=== PATIENT | female | born 1985 | race Caucasian/White ===

== ENCOUNTER 2020-07-11 02:54 | Outpatient (CLI) | payer MEDICAID, SELFPAY ==
[2020-07-11 10:43] LABS: Abs Immature Grans 0.03 10^3/uL (0.0-0.06); Absolute Basophil Count 0.02 10^3/uL (0.0-0.2); Absolute Eosinophil Count 0.03 10^3/uL (0.0-0.7); Absolute Lymphocyte Count 1.66 10^3/uL (1.2-3.4); Absolute Monocyte Count 0.42 10^3/uL (0.1-0.8); Basophils % 0.2; Eosinophils % 0.3; HCT 42.7 % (36.0-46.0); HGB 14.4 g/dL (11.2-15.7); Immature Grans % 0.3; MCH 30.1 pg (27.0-33.0); MCHC 33.7 % (32.0-36.0); MCV 89.3 fL (80-95); MPV 8.9 fL (8.0-11.0); Monocytes % 4.3; Neutrophils % 77.9; Nucleated RBC 0 %; Platelet Count 298 10^3/uL (130-400); RBC 4.78 10^6/uL (3.93-5.22); RDW 11.9 % (11.7-14.6); RDW-SD 38.9 fL; WBC 9.76 10^3/uL (4.4-10.8)
[2020-07-11 11:32] LABS: ALT 15 U/L (14-59); AST 11 U/L (15-37); Albumin 3.5 g/dL (3.4-5.0); Alkaline Phosphatase 42 U/L (46-116); Anion Gap 10.6 mmol/L (3-11); BUN 4 mg/dL (7-18); Bilirubin, Total 0.2 mg/dL (0.2-1.0); CO2 23.4 mmol/L (21.0-32.0); CREATININE 0.5 mg/dL (0.55-1.02); Calcium 8.8 mg/dL (8.5-10.1); Chloride 105 mmol/L (98-107); Glucose 83 mg/dL (74-106); Potassium 3.8 mmol/L (3.5-5.1); Sodium 139 mmol/L (136-145); TSH (W/Ref FT4) 1.88 uIU/mL (0.36-3.74); Uric Acid 3.2 mg/dL (2.6-6.0)
[2020-07-12 09:05] LABS: Hepatitis B Surface Ag Negative (Negative)
[2020-07-12 09:39] LABS: HIV-1/2 Ag & Ab Screen Negative (Negative)
[2020-07-12 09:53] LABS: Hepatitis C Ab w Rflx HCV PCR Negative (Negative)
[2020-07-12 11:44] LABS: Varicella IgG Antibody Positive (See Note)
[2020-07-12 11:50] LABS: Syphilis Serology (RPR) Negative (Negative)
[2020-07-12 11:51] LABS: Rubella IgG Ab (UVM) Positive (See Note)
[2020-07-18 14:07] LABS: Result Summary NEGATIVE; Specimen WB Whole Blood
--- NOTE | 2020-11-09 09:30 | NS.NUTBLAN_ITS ---
Met with Ella in [place] with Edel Alas CNM. Ella JONATHAN 01/28/21, failed GTT. Her finger sticks logs indicate some elevated fasting levels however, post prandial levels wnl. Diet record indicates very low carb intake (<50 g CHO). Has started to follow keto diet in hopes of decreasing fasting levels. Reviewed with Ella that optimal GDM diet includes 175-200 g CHO, 60-65 g protein with 3 meals, 2 snacks daily, along with 1 mile walk most days. Ella lost over 100 lbs in last year and is very focused on her diet/exercise. I encouraged her to increase her carbohydrate intake and to consider insulin if needed to keep fasting levels < 95 mg/dl. . Reviewed pros of NPH insulin and . Provided Ella with meal plans and contact info if needs additional help. Will follow up in 1 weeks in [facility]/phone.
== END 2020-07-11 02:55 | disposition home or self-care (01) ==
LOC: LBO 02:54
PROVIDERS: Advanced Practice Midwife; Visit Provider Advanced Practice Midwife
DX: O10.911 Unspecified pre-existing hypertension complicating pregnancy, first trimester (principal)
CPT/HCPCS: 36415; 80053; 85027; 86787; 86803; 86850; 86900; 86901; 87340; 87389; 81220; 84443; 84550; 85025; 86592; 86762

== ENCOUNTER 2020-07-11 11:18 | Outpatient (REF) | payer MEDICAID, SELFPAY ==
--- NOTE | 2020-07-11 10:00 | PAPFT_PTH ---
PATIENT: Ella Cordoba LOC: [facility] U#:[id number] AGE/SX: 34/F ROOM: RE07/11/[address]: Claudia Farfan CNM : 1985 BED: DIS: 07/11/2020 SPEC #: [id number] RECD: 07/11/20 12:52 STATUS: ZAYNAB REQ #: [id number] DC: 07/11/20 10:[address]: Claudia Farfan DEPT: [facility] Cytology RECD BY: Marah Powers ENTERED: 07/11/20 12:52 SP TYPE: PAPFT OT DR: Unknown,Unknown Tissues: 1 - CX/ENDOCX FOR PAP SMEARS Procedures: PAP THIN PREP/UVM Screening HPV DNA PROBE Comments: [id number]
[2020-07-11 12:39] LABS: *AMPHETAMINES SCREEN URINE Negative (Negative); *BARBITURATES SCREEN URINE Negative (Negative); *BENZODIAZEPINES SCREEN URINE Negative (Negative); Cannabinoids THC POSITIVE (Negative); Cocaine Screen,Urine Negative (Negative); METHADONE URINE SCREEN Negative (Negative); OPIATES URINE SCREEN Negative (Negative)
[2020-07-11 12:41] LABS: Tricyclic Antidepressants Negative (Negative)
[2020-07-12 14:09] LABS: Chlamydia Result Negative (Negative); GC Result Negative (Negative)
[2020-07-14 22:09] LABS: Buprenorphine Negative ng/mL (Cutoff: 5.0); Norbuprenorphine Negative ng/mL (Cutoff: 2.5)
== END 2020-07-11 11:19 | disposition home or self-care (01) ==
LOC: LBN 11:18
PROVIDERS: Visit Provider Advanced Practice Midwife
DX: Z34.91 Encounter for supervision of normal pregnancy, unspecified, first trimester (principal); Z11.3 Encounter for screening for infections with a predominantly sexual mode of transmission; Z12.4 Encounter for screening for malignant neoplasm of cervix; Z11.51 Encounter for screening for human papillomavirus (HPV)
CPT/HCPCS: 80307; 87491; 87591; 88142; 87086; 87624

== ENCOUNTER 2020-07-17 10:16 | Outpatient (REF) | payer MEDICAID, SELFPAY ==
[2020-07-17 13:04] LABS: PROTEIN 6.5 mg/dL (0.0-11.9)
[2020-07-17 13:16] LABS: Total Volume 3000 ml
== END 2020-07-17 10:17 | disposition home or self-care (01) ==
LOC: LBN 10:16
PROVIDERS: Visit Provider Advanced Practice Midwife
DX: Z34.91 Encounter for supervision of normal pregnancy, unspecified, first trimester (principal)
CPT/HCPCS: 81050; 84155

== ENCOUNTER 2020-08-08 11:01 | Outpatient (CLI) | payer MEDICAID, SELFPAY ==
[2020-08-08 11:40] LABS: Kit/Specimen SENT
[2020-08-10 11:13] LABS: Syphilis Total Ab w/Reflex Nonreactive (Nonreactive)
== END 2020-08-08 11:02 | disposition home or self-care (01) ==
LOC: LBO 11:04
PROVIDERS: Advanced Practice Midwife; Visit Provider Advanced Practice Midwife
DX: Z34.91 Encounter for supervision of normal pregnancy, unspecified, first trimester (principal)
CPT/HCPCS: 36415; 86780

== ENCOUNTER 2020-08-15 03:28 | Outpatient (CLI) | payer MEDICAID, SELFPAY ==
[2020-08-15 16:36] LABS: Glucose,1 Hr (Glucola) 145 mg/dL (80-140)
== END 2020-08-15 03:29 | disposition home or self-care (01) ==
LOC: LBO 03:28
PROVIDERS: Visit Provider Advanced Practice Midwife
DX: Z34.92 Encounter for supervision of normal pregnancy, unspecified, second trimester (principal); Z68.31 Body mass index [BMI] 31.0-31.9, adult
CPT/HCPCS: 36415; 82950

== ENCOUNTER 2020-08-23 02:12 | Outpatient (CLI) | payer MEDICAID, SELFPAY ==
[2020-08-23 08:55] LABS: Glucose 1 Hour 176 mg/dL
[2020-08-23 11:04] LABS: Glucose 3 Hour 78 mg/dL
== END 2020-08-23 02:13 | disposition home or self-care (01) ==
LOC: LBO 02:12
PROVIDERS: Visit Provider Advanced Practice Midwife
DX: O99.810 Abnormal glucose complicating pregnancy (principal); Z3A.17 17 weeks gestation of pregnancy
CPT/HCPCS: 36415; 82951

== ENCOUNTER 2020-08-31 01:49 | Outpatient (CLI) | payer MEDICAID, SELFPAY ==
--- NOTE | 2020-08-31 06:15 | DI.US_ITS ---
EXAM: US OB 2-3 TRIMESTER CLINICAL HISTORY: 18 wk anatomy survey,Z34.90. TECHNIQUE: Transabdominal obstetrical ultrasound was performed. COMPARISON: No exams were available for comparison FINDINGS: There is a single viable intrauterine gestation with cardiac activity identified- bpm. Amniotic fluid: There is a normal amount of amniotic fluid. Placental location: The placenta is posterior grade 1,with no evidence of placenta previa. ANATOMY: A 3 vessel umbilical cord is seen. A four-chamber cardiac view was obtained. Right and left ventricular outflow tracts were imaged. There are no obvious abnormalities of the spinal column evident. There is no obvious abnormal ity of the anterior abdominal wall. stomach and urinary bladder are identified and there is no evidence of hydronephrosis. No abnormalities of the upper lip region are identified. No evidence of choroid plexus cysts i n the brain. Dating parameters place this at approximately 19 weeks and 1 day gestational age. BPD measures 19 weeks and 1 day HC measures 19 weeks and 2 days AC measures 18 weeks and 6 days FL measures 19 weeks and 0 days Estimated weight is 267 gm-0 pounds 9 ounces Fetus is at the 90th percentile on the Hadlock scale. IMPRESSION:: Single viable intrauterine gestation which is approximately 19 weeks and 1 day gestatio nal age, implying an JONATHAN of January 24, 2021. There are no obvious anomalies evident on today's study. The placenta is posterior with no evidence of placenta previa. There is a normal amount of amniotic fluid. DATA REPOSITORY:
== END 2020-08-31 02:09 ==
PROVIDERS: Visit Provider Advanced Practice Midwife
DX: Z34.92 Encounter for supervision of normal pregnancy, unspecified, second trimester (principal); Z3A.19 19 weeks gestation of pregnancy
CPT/HCPCS: 76805

== ENCOUNTER 2020-11-02 02:34 | Outpatient (CLI) | payer MEDICAID, SELFPAY ==
[2020-11-02 09:45] LABS: Glucose 1 Hour 222 mg/dL
[2020-11-02 11:34] LABS: Glucose 3 Hour 50 mg/dL
--- NOTE | 2020-11-03 14:39 | DIABASSESS_ITS ---
Date of service: 11/03/20 Time of Service: 14:39 Diabetes Note NOTE: Spoke with Ella on phone today. Pharmacy will have glucometer today by 4 pm. Shamir reports losing > 100 lbs before pregancy by following lower carb diet and exercising. Very anxious about regaining too much of weight. Has gained 33 lbs so far. Provided education on how to follow 175-200 g carbohyrate diet with emphasis on complex carbs, lean protein and healthy fats. Encouraged daily walking of 30 minutes. reviewed blood sugar goals and when to do finger sticks. Returns to [facility] 11/09/20. Will continue to follow and support. Time Spent in Nutritional Counseling and Treatment: 20 min
== END 2020-11-02 02:35 | disposition home or self-care (01) ==
PROVIDERS: Visit Provider Advanced Practice Midwife
DX: O99.810 Abnormal glucose complicating pregnancy (principal); Z3A.27 27 weeks gestation of pregnancy
CPT/HCPCS: 82951

== ENCOUNTER 2020-11-09 14:31 | Outpatient (REF) | payer MEDICAID, SELFPAY ==
[2020-11-09 12:03] LABS: *AMPHETAMINES SCREEN URINE Negative (Negative); *BARBITURATES SCREEN URINE Negative (Negative); *BENZODIAZEPINES SCREEN URINE Negative (Negative); Cannabinoids THC Positive (Negative); Cocaine Screen,Urine Negative (Negative); METHADONE URINE SCREEN Negative (Negative); OPIATES URINE SCREEN Negative (Negative)
[2020-11-09 12:04] LABS: Tricyclic Antidepressants Negative (Negative)
[2020-11-15 16:26] LABS: Buprenorphine Negative ng/mL (Cutoff: 5.0); Norbuprenorphine Negative ng/mL (Cutoff: 2.5)
== END 2020-11-09 14:32 | disposition home or self-care (01) ==
LOC: LBN 14:31
PROVIDERS: Visit Provider Advanced Practice Midwife
DX: O99.323 Drug use complicating pregnancy, third trimester (principal); R82.5 Elevated urine levels of drugs, medicaments and biological substances; Z3A.28 28 weeks gestation of pregnancy
CPT/HCPCS: 80307

== ENCOUNTER 2020-11-09 16:34 | Outpatient (CLI) | payer MEDICAID, SELFPAY | END 2020-11-09 16:35 | disposition home or self-care (01) | LOC: DS 16:35 | PROVIDERS: Visit Provider Dietitian, Registered | DX: O24.430 Gestational diabetes mellitus in the puerperium, diet controlled (principal); Z3A.28 28 weeks gestation of pregnancy; Z71.3 Dietary counseling and surveillance | CPT/HCPCS: 97802 ==

== ENCOUNTER 2020-12-25 01:35 | Outpatient (CLI) | payer MEDICAID, SELFPAY ==
--- NOTE | 2020-12-25 08:15 | DI.US_ITS ---
Exam(s) US OB NADJA WEIGHT EXAM: US OB NADJA WEIGHT CLINICAL HISTORY: hypertension,O10.919,z34.90. TECHNIQUE: Transabdominal obstetrical ultrasound was performed. COMPARISON: US US OB 2-3 TRIMESTER from 08/31/2020 FINDINGS: There is a single viable intrauterine gestation with cardiac activity identified-158 bpm The fetus is presently in cephalic position . Amniotic fluid: There is a normal amount of amniotic fluid with an NADJA of 11.3cm. Placental location: The placenta is posterior grade 2,with no evidence of placenta previa. Dating parameters place this at approximately 35 weeks and 3 days gestational age, implying JONATHAN of January 26, 2021. BPD measures 35 weeks and 2 days HC measures 34 weeks and 3 days AC measures 35 weeks and 6 days FL measures 36 weeks and 1 day Estimated weight is 2742 gm-6 pounds 1 ounce Fetus is at the 64th percentile on the Hadlock scale. IMPRESSION:: Viable 3rd trimester gestation, as described above. DATA REPOSITORY:
== END 2020-12-25 01:55 ==
PROVIDERS: Visit Provider Advanced Practice Midwife
DX: O16.3 Unspecified maternal hypertension, third trimester (principal); Z3A.35 35 weeks gestation of pregnancy
CPT/HCPCS: 76816

== ENCOUNTER 2020-12-25 13:08 | Outpatient (CLI) | payer MEDICAID, SELFPAY ==
[2020-12-25 13:30] VITALS: BP 159/80; PULSE 80; TEMP 36.8
[2020-12-25 13:31] VITALS: BP 159/80; PULSE 80
--- NOTE | 2020-12-25 14:55 | W.OBNST ---
Date of service: 12/25/20 Time of Service: 14:55 NST Evaluation Reason for NST Reasons for Nonstress Test: GDM-DIET CONTROLLED and OTHER, SEE COMMENT Reason for NST Other: Chronic HTN-PO Medication Gestational Age Gestational Age in Weeks and Days: 35 Weeks and 1Days Test and Monitor Explained Test/Monitor Explained: Test Explained, Monitor Explained and Patient Verbalized Understanding Vital Signs Blood Pressure: 159/80 Pulse: 80 Temperature: 98.2 F NST Information Date on Monitor: 12/25/20 Time on Monitor: 13:31 Date off Monitor: 12/25/20 Time off Monitor: 14:12 Total Time on Monitor: 41 NST Interventions: PO Hydration Contraction Frequency: 5-8 NST Evaluation Patient States Movement: Present FHR Baseline: 125 Variability: Moderate 6-25 bpm Accelerations: 15x15 Decelerations: None NST Results: Reactive Note NST Note Note: NST reactive, will be returning for NST's x2/wk for GDM and ChHTN. To ultrasound now, next NST on , 36 wk check next Friday, pt aware of and accepts plan for IOL @ 39 wks. MEJIA NST Reviewed and Verified by: Jennifer Donis
[2020-12-25 14:57] VITALS: BP 159/80; PULSE 80; TEMP 36.8
== END 2020-12-25 13:50 | disposition home or self-care (01) ==
LOC: BCD 13:11 → OBS 13:13
PROVIDERS: Visit Provider Advanced Practice Midwife
DX: O24.410 Gestational diabetes mellitus in pregnancy, diet controlled (principal); O10.013 Pre-existing essential hypertension complicating pregnancy, third trimester; Z3A.35 35 weeks gestation of pregnancy
CPT/HCPCS: 59025

== ENCOUNTER 2020-12-28 07:38 | Outpatient (CLI) | payer MEDICAID, SELFPAY ==
[2020-12-28 07:49] VITALS: BP 148/93; PULSE 98; TEMP 36.8
[2020-12-28 07:52] VITALS: BP 148/93; PULSE 98
[2020-12-28 08:07] VITALS: BP 146/81; PULSE 85
--- NOTE | 2020-12-28 08:22 | W.OBNST ---
Date of service: 12/28/20 Time of Service: 08:00 NST Evaluation Reason for NST Reasons for Nonstress Test: GDM-DIET CONTROLLED Gestational Age Gestational Age in Weeks and Days: 35 Weeks and 4Days Test and Monitor Explained Test/Monitor Explained: Test Explained, Monitor Explained and Patient Verbalized Understanding Vital Signs Blood Pressure: 148/93 Pulse: 98 Temperature: 98.2 F NST Information Date on Monitor: 12/28/20 Time on Monitor: 04:46 Date off Monitor: 12/28/20 Time off Monitor: 08:09 Total Time on Monitor: 203 NST Interventions: None Contraction Frequency: 2 in 21 min NST Evaluation Patient States Movement: Present FHR Baseline: 135 Variability: Moderate 6-25 bpm Accelerations: 15x15 NST Results: Reactive Note NST Note Note: Ella presented for NST due to Chronic HTN in and GDM. Feeling well. No GUTIERREZ, visual disturbance or epigastric pain. Denies signs of labor. Is taking Labetalol as directed. Will return to office on Friday and repeat NST at that time. JOSELYN NST Reviewed and Verified by: Claudia Farfan
[2020-12-28 08:25] VITALS: BP 148/93; PULSE 98; TEMP 36.8
[2020-12-28 12:08] VITALS: BP 104/74; PULSE 104
== END 2020-12-28 08:10 | disposition home or self-care (01) ==
LOC: BCD 07:41 → OBS 07:47
PROVIDERS: Visit Provider Advanced Practice Midwife
DX: O24.410 Gestational diabetes mellitus in pregnancy, diet controlled (principal); O10.013 Pre-existing essential hypertension complicating pregnancy, third trimester; Z3A.35 35 weeks gestation of pregnancy
CPT/HCPCS: 59025

== ENCOUNTER 2021-01-01 08:07 | Outpatient (CLI) | payer MEDICAID, SELFPAY ==
[2021-01-01 08:48] VITALS: BP 149/80; PULSE 69
[2021-01-01 08:50] VITALS: BP 149/80; PULSE 69; TEMP 37
--- NOTE | 2021-01-01 09:25 | W.OBNST ---
Date of service: 01/01/21 Time of Service: 09:26 NST Evaluation Reason for NST Reasons for Nonstress Test: GDM-DIET CONTROLLED Reason for NST Other: Chronic HTN Gestational Age Gestational Age in Weeks and Days: 36 Weeks and 1Days Test and Monitor Explained Test/Monitor Explained: Test Explained, Monitor Explained and Patient Verbalized Understanding Vital Signs Blood Pressure: 149/80 Pulse: 69 Temperature: 98.6 F NST Information Date on Monitor: 01/01/21 Time on Monitor: 08:00 Date off Monitor: 01/01/21 Time off Monitor: 08:50 Total Time on Monitor: 50 NST Interventions: None Contraction Frequency: occasional NST Evaluation Patient States Movement: Present FHR Baseline: 130 Variability: Moderate 6-25 bpm Accelerations: 15x15 Decelerations: None NST Results: Reactive Note NST Note Note: I reviewed BP and BG's with MD, BG's are very stable and at times even run low enough to allow patient to add some carbs back into diet. BP is slightly elevated without any symptoms of pre-eclampsia. IF BP remains elevated on 01/04/21 when she returns for next NST will need to increase Labetalol per MD. Patient is comfortable with this plan. IOL scheduled for 01/22/21 at 8 am at 39w1d. NST is reactive and reassuring today. NST Reviewed and Verified by: Claudia Farfan
[2021-01-01 09:28] VITALS: BP 149/80; PULSE 69; TEMP 37
== END 2021-01-01 09:05 | disposition home or self-care (01) ==
LOC: BCD 08:07 → OBS 08:09
PROVIDERS: Visit Provider Advanced Practice Midwife
DX: O24.410 Gestational diabetes mellitus in pregnancy, diet controlled (principal); O10.013 Pre-existing essential hypertension complicating pregnancy, third trimester; Z3A.36 36 weeks gestation of pregnancy
CPT/HCPCS: 59025

== ENCOUNTER 2021-01-01 13:22 | Outpatient (REF) | payer MEDICAID, SELFPAY ==
[2021-01-01 11:17] LABS: Bilirubin Negative (Negative); Blood Negative (Negative); Clarity Sl Cloudy (Clear); Glucose Negative (Negative); Ketones Negative (Negative); Leukocyte Esterase Large (Negative); Nitrite Negative (Negative); Specific Gravity 1.015 (1.005-1.025); Urobilinogen 0.2 EU/dL (Up TO 0.2); pH 7.5 (5-8)
[2021-01-01 11:25] LABS: Bacteria Moderate HPF (Negative); C & S Indicated? No/Sq. Contamination; Casts Negative LPF (Negative); Crystals Negative HPF (Negative); Epithelial Cells Many HPF (Negative); Mucus Negative (Negative); RBC 0-2 HPF (0-2); WBC 20-50 HPF (0-5)
[2021-01-01 11:40] LABS: *AMPHETAMINES SCREEN URINE Negative (Negative); *BARBITURATES SCREEN URINE Negative (Negative); *BENZODIAZEPINES SCREEN URINE Negative (Negative); Cannabinoids THC Positive (Negative); Cocaine Screen,Urine Negative (Negative); METHADONE URINE SCREEN Negative (Negative); OPIATES URINE SCREEN Negative (Negative)
[2021-01-01 11:42] LABS: Tricyclic Antidepressants Negative (Negative)
[2021-01-06 11:39] LABS: Buprenorphine Negative ng/mL (Cutoff: 5.0)
== END 2021-01-01 13:23 | disposition home or self-care (01) ==
LOC: LBN 13:22
PROVIDERS: Visit Provider Advanced Practice Midwife
DX: Z34.93 Encounter for supervision of normal pregnancy, unspecified, third trimester (principal); Z36.85 Encounter for antenatal screening for Streptococcus B; Z3A.36 36 weeks gestation of pregnancy
CPT/HCPCS: 80307; 81003; 81015; 87081

== ENCOUNTER 2021-01-04 06:47 | Outpatient (CLI) | payer MEDICAID, SELFPAY ==
[2021-01-04 10:28] VITALS: BP 144/78; PULSE 72; TEMP 36.8
[2021-01-04 10:44] VITALS: BP 144/78; PULSE 72
--- NOTE | 2021-01-04 11:15 | W.OBNST ---
Date of service: 01/04/21 Time of Service: 11:15 NST Evaluation Reason for NST Reasons for Nonstress Test: GESTATIONAL HYPERTENSION Gestational Age Gestational Age in Weeks and Days: 36 Weeks and 4Days Test and Monitor Explained Test/Monitor Explained: Test Explained, Monitor Explained and Patient Verbalized Understanding Vital Signs Blood Pressure: 144/78 Pulse: 72 Temperature: 98.2 F NST Information Date on Monitor: 01/04/21 Time on Monitor: 10:28 Date off Monitor: 01/04/21 Time off Monitor: 10:55 Total Time on Monitor: 27 NST Interventions: PO Hydration NST Evaluation Patient States Movement: Present FHR Baseline: 130 Variability: Moderate 6-25 bpm Accelerations: 15x15 Decelerations: None NST Results: Reactive Note NST Note Note: weight checked today and 213. Fundal height 36. US scheduled for growth in 2 weeks. NST Reviewed and Verified by: Claudia Alas
[2021-01-04 11:16] VITALS: BP 144/78; PULSE 72; TEMP 36.8
== END 2021-01-04 11:00 | disposition home or self-care (01) ==
LOC: BCD 06:52 → OBS 09:07
PROVIDERS: Visit Provider Advanced Practice Midwife
DX: O13.3 Gestational [pregnancy-induced] hypertension without significant proteinuria, third trimester (principal); Z3A.36 36 weeks gestation of pregnancy
CPT/HCPCS: 59025

== ENCOUNTER 2021-01-08 07:21 | Outpatient (CLI) | payer MEDICAID, SELFPAY ==
[2021-01-08 07:54] VITALS: BP 139/69; PULSE 88; TEMP 37.1
[2021-01-08 08:11] VITALS: BP 139/69; PULSE 88
--- NOTE | 2021-01-08 08:20 | W.OBNST ---
Date of service: 01/08/21 Time of Service: 08:20 NST Evaluation Gestational Age Gestational Age in Weeks and Days: 36 Weeks and 4Days Note NST Note NST Reviewed and Verified by: Jennifer Donis
[2021-01-09 14:23] VITALS: BP 139/69; PULSE 88; TEMP 37.1
--- NOTE | 2021-01-09 14:23 | W.OBNST ---
Date of service: 01/08/21 Time of Service: 08:30 NST Evaluation Reason for NST Reasons for Nonstress Test: GDM-DIET CONTROLLED and GESTATIONAL HYPERTENSION Gestational Age Gestational Age in Weeks and Days: 36 Weeks and 4Days Test and Monitor Explained Test/Monitor Explained: Test Explained, Monitor Explained and Patient Verbalized Understanding Vital Signs Blood Pressure: 139/69 Pulse: 88 Temperature: 98.8 F NST Information Date on Monitor: 01/08/21 Time on Monitor: 07:59 Date off Monitor: 01/08/21 Time off Monitor: 08:20 Total Time on Monitor: 21 NST Interventions: None NST Evaluation Patient States Movement: Present FHR Baseline: 130 Variability: Moderate 6-25 bpm Accelerations: 15x15 Decelerations: None NST Results: Reactive Note NST Note NST Reviewed and Verified by: Jennifer Donis
== END 2021-01-08 08:22 | disposition home or self-care (01) ==
LOC: BCD 07:24 → OBS 07:36
PROVIDERS: Visit Provider Advanced Practice Midwife
DX: O24.410 Gestational diabetes mellitus in pregnancy, diet controlled (principal); O10.013 Pre-existing essential hypertension complicating pregnancy, third trimester
CPT/HCPCS: 59025

== ENCOUNTER 2021-01-11 07:23 | Outpatient (CLI) | payer MEDICAID, SELFPAY ==
[2021-01-11 08:13] VITALS: BP 145/76; PULSE 85
[2021-01-11 08:34] VITALS: BP 145/76; PULSE 85; TEMP 36.9
--- NOTE | 2021-01-11 08:48 | W.OBNST ---
Date of service: 01/11/21 Time of Service: 08:48 NST Evaluation Reason for NST Reasons for Nonstress Test: CHRONIC HYPERTENSION Gestational Age Gestational Age in Weeks and Days: 39 Weeks and 1Days Test and Monitor Explained Test/Monitor Explained: Test Explained, Monitor Explained and Patient Verbalized Understanding Vital Signs Blood Pressure: 145/76 Pulse: 85 Temperature: 98.4 F NST Information Date on Monitor: 01/11/21 Time on Monitor: 07:58 Date off Monitor: 01/11/21 Time off Monitor: 08:24 Total Time on Monitor: 26 NST Interventions: Notify Provider Contraction Frequency: none NST Evaluation Patient States Movement: Present FHR Baseline: 135 Variability: Moderate 6-25 bpm Accelerations: 15x15 Decelerations: None NST Results: Reactive Note NST Note NST Reviewed and Verified by: Jennifer Donis
[2021-01-11 08:49] VITALS: BP 145/76; PULSE 85; TEMP 36.9
== END 2021-01-11 08:30 | disposition home or self-care (01) ==
LOC: BCD 07:24 → OBS 07:56
PROVIDERS: Visit Provider Advanced Practice Midwife
DX: O10.013 Pre-existing essential hypertension complicating pregnancy, third trimester (principal); Z3A.39 39 weeks gestation of pregnancy
CPT/HCPCS: 59025

== ENCOUNTER 2021-01-15 07:47 | Outpatient (CLI) | payer MEDICAID, SELFPAY ==
[2021-01-15 08:02] VITALS: BP 139/83; PULSE 83; TEMP 36.9
[2021-01-15 08:25] VITALS: BP 139/83; PULSE 83
--- NOTE | 2021-01-15 08:55 | PDOC.NST_ITS ---
Date of service: 01/15/21 Time of Service: 08:55 NST Evaluation Reason for NST Reasons for Nonstress Test: CHRONIC HYPERTENSION Gestational Age Gestational Age in Weeks and Days: 38 Weeks and 1Days Test and Monitor Explained Test/Monitor Explained: Test Explained, Monitor Explained and Patient Verbalized Understanding Vital Signs Blood Pressure: 139/83 Pulse: 83 Temperature: 98.4 F NST Information Time on Monitor: 08:00 Date off Monitor: 01/15/21 Time off Monitor: 08:29 NST Interventions: None Contraction Frequency: occasional NST Evaluation Patient States Movement: Present FHR Baseline: 130 Variability: Moderate 6-25 bpm Accelerations: 15x15 Decelerations: None NST Results: Reactive Note NST Note Note: BP 139/83. Pt discharged and to [facility] for appt. NST Reviewed and Verified by: Jennifer Donis
[2021-01-15 08:56] VITALS: BP 139/83; PULSE 83; TEMP 36.9
== END 2021-01-15 08:30 | disposition home or self-care (01) ==
LOC: BCD 07:49 → OBS 07:55
PROVIDERS: Visit Provider Advanced Practice Midwife
DX: O10.013 Pre-existing essential hypertension complicating pregnancy, third trimester (principal); Z3A.38 38 weeks gestation of pregnancy
CPT/HCPCS: 59025

== ENCOUNTER 2021-01-16 02:47 | Inpatient (IN) | payer MEDICAID, SELFPAY ==
[2021-01-16] VITALS (20 sets, daily range): BP systolic 136–180; BP diastolic 66–114; PULSE 66–105; RESP 16–20; TEMP 36.5–37.3; O2SAT 98
--- NOTE | 2021-01-16 02:48 | HPE_ITS ---
Date of service: 01/16/21 Time of Service: 02:48 Assessment and Plan Assessment and plan (1) Spontaneous onset of labor: Status: Acute Assessment and plan: A: 35 yo @ 38+2 wks Spontaneous active labor Chronic HTN w/Rx, GDM diet controlled GBS neg low risk for SD, elevated risk of PPH P: Admit to BC, CBC, T&S, COVID swab Anticipate delivery shortly Preparations in place for active third stage management OB-HPI Labor/Delivery History of Present Illness Reason for Visit: term labor Chief Complaint: Uterine Contractions; Suspected Rupture of Membranes , Associated Signs and Symptoms of Suspected ROM: gush of clear fluid in the car en route to [facility]. JONATHAN Calculator Estimated Delivery Date Method Current WG Current Estimate 01/28/21 LMP (Certain) 38w 2d Other Estimates 01/29/21 Ultrasound #1 38w 1d History of Present Expected Delivery Route/Plan - desires CNM delivery, collab w/MD for chronic HTN FOB/fiance - Dwight Yoan (his first child) BG Malu May Chronic HTN on medication: ACOG rec for IOL at 37-39 wks, booked for 01/22/21 GDM dx'ed at 27 wks Plans for regional anesthesia GBS negative Specific Issues/Plan 1. tobacco use 5 cig/day, and daily MJ use, for anxiety 1b. Smoking 3 cigarettes per day. Refill of nicotine patch 7 mg 09/28/20 2. Hx polysubstance abuse, opioid dependance. MAT treatment discont'ed 2015 2a. Pos marijuanan use - Repeat UDS in 3rd trimester and discuss POSC 2b. Pos UDS for marijuana, POSC done late December 3. history of pre-eclampsia, chronic HTN. Baseline labs ordered 07/11/20; all WNL 3a. Start 162 mg ASA daily @ 12 wks for increased risk of pre-eclampsia 3b. Began taking Labetalol 100 mg BID @ 18 wks 4. CF carrier screen negative, [place] drawn 08/08/20 - low prob x3, female 5. BMI >30, early ngwejgl=295 @ 16 wks; 5a. 3 hr GTT 96/176/72/7 (fasting only elevated level, per [facility] repeat 28 weeks) 5b. repeat 3 hr 26-28 wks: sched'ed for 11/02. 5b. On 11/02, 3 hr GTT: [id number], Glucose meter/supplies ordered. 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 Discuss with pt SMART team enrollment/[employer] support options, 10/26 pt declines enrollment 7. Restless legs - magnesium recommended 8. Ella and her partner decline covid vaccine 9. Heartburn - protonix prescribed daily. 10. Extensive dental work being done: 10 bad teeth needing caps & fillings 11. Gestational Diabetes - Monitoring QID. Will come in after 2nd week to evaluate bood sugars.. 12. Constipation - metamucil daily. 13. Gayathri do not plan to get the Covid vaccine during and post . Assessment: History Reviewed & Current Review of Systems All systems reviewed & are unremarkable except as noted in HPI and below Constitutional Constitutional: Reports system reviewed and no additional complaints, except as documented Cardiovascular Cardiovascular: Reports system reviewed and no additional complaints, except as documented Respiratory Respiratory: Reports system reviewed and no additional complaints, except as documented Gastrointestinal Gastrointestinal: Reports system reviewed and no additional complaints, except as documented Genitourinary Genitourinary: Reports system reviewed and no additional complaints, except as documented Musculoskeletal Musculoskeletal: Reports system reviewed and no additional complaints, except as documented Integumentary/Breasts Skin/Breast: Reports system reviewed and no additional complaints, except as documented [facility] Medical History (Updated 01/16/21 @ 05:02 by Jennifer Donis) ADHD Hospitalized after stopping adderall Chronic hypertension during will start lo dose ASA and do baseline labs at initial OB Current smoker info on smoking cessation given, nicotine patch History of drug use clean times 4 years except Marijuana and tobacco use History of narcotic addiction Marijuana use Positive urine drug screen THC only, will corrections counselor again PTSD (post-traumatic stress disorder) DX reported by Pt on 01/04/21 Family History (Updated 09/28/20 @ 10:26 by Claudia Alas CNM) Mother Cancer Colon cancer Hyperlipidemia Hypertension Maternal Grandfather Cancer Breast CA Paternal Grandmother Cancer Breast CA diagnosed after age 50 in her 70's Maternal Grandfather Diabetes Father Heart disease arrhythmia no meds Social History (Updated 06/27/20 @ 10:11 by Claudia Plummer MD) Smoking/Tobacco Use Status: Current every day Tobacco Type: cigarettes Smoking risk assessment performed?: Yes Household members: significant other Housing: other Details: moved from [place] in Jan. Fredi Godfrey 11yo Number of Children: 1 What type of physical activity do you participate in: walking Female Reproductive History Menstrual Age of Menarche: 12 Duration of menses: <3 days History History 2 3 Para 1 Hx # Term Pregnancies 1 Multiple births 0 Hx # Pregnancies 0 Ectopic pregnancies 0 AB induced 0 Hx Number of Living Children 1 AB spontaneous 1 Past Pregnancies Del. Date GA/Weeks # Outcome Route Wgt Sex Labor Lgth Anesthes ia Location Prov Complic 07/26/09 38 No Successful vaginal 6 lb 8 oz Female cervidil, responded right away, had epidural regional [place], [place] Delivery Date: 07/26/09 IOL for pre-eclampsia Jennifer Donis Allergies and Home Medications Allergies Allergy/AdvReac Type Severity Reaction Status Date / Time No Known Allergies Allergy Verified 01/15/21 08:57 Home Medications Medication Instructions Recorded Confirmed Type aspirin 81 mg tablet,delayed 162 mg PO DAILY #120 tab 07/12/20 01/15/21 Rx release vitamin with calcium 1 tab PO DAILY #90 tab 07/12/20 01/15/21 Rx no.72-iron 27 mg-folic acid 1 mg tablet nicotine 7 mg/24 hr daily 1 patch TRANSDERMAL Q24H #14 ea 09/28/20 01/15/21 Rx transdermal patch magnesium oxide 500 mg capsule 500 mg PO DAILY 10/26/20 01/15/21 History blood-glucose meter #1 ea 11/02/20 01/15/21 Rx lancets 28 gauge #100 ea 11/02/20 01/15/21 Rx labetalol 100 mg tablet 100 mg PO BID #30 tab 11/08/20 01/15/21 Rx pantoprazole 40 mg tablet,delayed 40 mg PO DAILY #90 tab 12/19/20 01/15/21 Rx release blood sugar diagnostic #100 ea 01/08/21 01/15/21 Rx Exam Physical Exam Vital signs: Pulse BP 84 163/106 H 01/16/21 02:39 01/16/21 02:39 Vital Signs Reviewed: Yes Constitutional Constitutional: moderate distress and average body habitus Detailed Labor and Delivery Exam Dilation: 6 Effacement (%): 100 station: +2 Position: LILIA Cervix position: anterior Consistency: soft Amniotic Membrane Status: Ruptured (gross rupture apparent) Rupture Method: Spontaneous Contraction Frequency(min): q2-3 Contraction Intensity: Strong Fetus A Heart Rate Baseline: 125 Monitor Accelerations: 15 X 15 Monitor Decelerations: None Variability: Moderate (6-25 BPM) Presentation: Cephalic Categories: Category I Est. Weight: 6 lb 6.294 oz Est. Weight: 2900 gms Date of Membrane Rupture: 01/16/21 Time of Membrane Rupture: 02:20 HEENT Exam HEENT Exam: Normal Neck Exam Neck Exam: Normal Chest/Brest/Axilla Exam Chest Exam: Normal Breast Exam Breast Exam: Not Done Respiratory Exam Respiratory Exam: Normal Cardiovascular Exam Cardiovascular Exam: Normal Abdominal Exam Abdominal Exam: Normal (Gravid) Rectal Exam Rectal Exam: Not Done Exam Exam: Normal Extremities Exam Extremities Exam: Normal Back/Spine/Pelvis Exam Back Exam: Normal Pelvis Adequate: Yes Skin Exam Skin Exam: Normal Neurological Exam Neurological Exam: Normal Psychiatric Exam Psychiatric Exam: Normal Results Results Group Beta Strep: Negative Blood Type: A+ Rubella Status: Immune Varicella Immunity: Immune Risk Assessment Risk for Shoulder Dystocia Historical/Initial OB: NEGATIVE FOR: Pelvic Abnormality, Pre- BMI>30, Previous Shoulder Dystocia or Previous Macrosomia Increased Risk?: No Counseling: is aware that GDM can increase risk of shoulder dystocia, EFW is WNL at 34 weeks 64% 11.3 NADJA.KH Date/Initial: 01/01/21 Delivery Plan @ 36wks: Induction scheduled at 39w1d 01/22/21. Risk for Pre-Eclampsia Daily Dose ASA Indicated: Yes Date Initiated/Initials: 07/11/20 hx Pre E last delivery and HTN currently, starting lo dose ASA. Yes, if one or more: POSTIVE FOR: Hx Pre-E/Gest HTN and Chronic HTN; NEGATIVE FOR: Multiple Gestation, Pre-gestational DM, Renal Disease, Systemic Lupus or APA Syndrome Yes, if 2 or more: NEGATIVE FOR: Nulliparity, Age>= 35 yrs, >10yr btwn pregnancies, BMI>30, ethinicty, Mother/Sister w/ Pre-E or Previous IUGR Risk for Post- Hemorrhage Initial: NEGATIVE FOR: Multiple Gestation, Previous PPH, Known Clotting Deficiency, Grand Multiparity or Anticoagulation At Risk?: Yes Interventions: HTN controlled with labetalol Counseled re: Active Management: Yes Date/Initials: 07/11/20.KH Risks Reviewed Risks Reviewed Upon Admission: Yes
[2021-01-16 03:09] LABS: Source Nasal/Nares
[2021-01-16 03:09] LABS: HCT 39.3 % (36.0-46.0); HGB 13.1 g/dL (11.2-15.7); MCH 28.7 pg (27.0-33.0); MCHC 33.3 % (32.0-36.0); MCV 86.2 fL (80-95); MPV 9.3 fL (8.0-11.0); Platelet Count 251 10^3/uL (130-400); RBC 4.56 10^6/uL (3.93-5.22); RDW-SD 40.9 fL; WBC 11.38 10^3/uL (4.4-10.8)
[2021-01-16 04:00] LABS: COVID-19 PCR Negative (Negative)
[2021-01-16] MEDS: Oxytocin/Normal Saline 30 UNITS/500 ML BAG 167 UNITS IV (04:47)
--- NOTE | 2021-01-16 05:07 | W.OBDELIVERY ---
Date of service: 01/16/21 Time of Service: 05:07 OB Labor/ Delivery Information Baby A Delivery Delivery Method: Spontaneaous Presentation: Cephalic Cephalic Position: Vertex Vertex Position: Right Occipital Anterior Breech Position: N/A Cord Description-Baby A: 3 Vessels Amniotic Fluid: Clear Estimated Blood Loss: 350 Delivery Outcome: Liveborn Infant Transferred: Remains with Mother Note: Labor progressed rapidly to full dilation with pt using nitrous oxide, labor too advanced to initiate regional anesthesia as pt had planned. Involuntarily pushing at full dilation, 2nd stage huddle completed, pt tried different positions and finally settled on standing at bedside and leaning upper body across the bed, using nitrous as needed. accomplished of a vigorous female infant over intact perineum, bulb suctioned and wrapped in blanket, pt stepped over cord while turning around and received baby in her arms, pt assisted onto bed. Cord ceased pulsating, clamped and cut by FOB, cord blood collected, Pitocin 10 units given IM. M[place] placenta intact with 3VC, IV access initiated for pitocin IV infusion . Introitus and vagina inspected and are intact without laceration, strong family bonding observed. Apgars 9/9, weight 3335 gms. Providers Nurse Event Planning Manager: Jennifer Donis Nurse: Kaylynn Harvey Nurse: Jeff Sheridan Labor/Delivery Information Number of Babies in Womb: 1 Reason Steroids Not Administered: N/A Group Beta Strep: Negative Antibiotics Administered: No Rubella Status: Immune Blood Type: A+ Varicella Immunity: Immune Maternal Complications: None Shoulder Dystocia: No Stages of Labor Onset of Labor Date: 01/15/21 Onset of Labor Time: 23:00 Complete Dilatation Date: 01/16/21 Complete Dilatation Time: 03:40 Labor - Stage 1 Duration: 24 hours and 0 minutes ROM Baby A: 01/16/21 ROM Baby A: 02:20 Delivery Date-Baby A: 01/16/21 Delivery Time-Baby A: 04:16 Labor Stage 2 Duration: 36 minutes Placenta Delivery Date-Baby A: 01/16/21 Placenta Delivery Time-Baby A: 04:40 Labor-Stage 3 Duration: 24 minutes Total Length of Labor-Baby A: 5 hours and 16 minutes Placenta Cultured: No Placenta Status: Delivered Baby A Gender: Female Gestational Status: Early Term (37-38.6 wks) weight: 7 lb 5.639 oz Weight Comment: 3335 gms Score-1 Minute Interval(Baby A) Heart Rate-1 minute: 100 BPM or Greater Respiratory Effort- 1 minute: Spontaneous/Strong Cry Muscle Tone-1 minute: Active Movement Reflex Response-1 minute: Prompt Response Color-1 minute: Bluish Hands or Feet Score-5 Minute Interval(Baby A) Heart Rate- 5 minute: 100 BPM or Greater Respiratory Effort-5 minute: Spontaneous/Strong Cry Muscle Tone-5 minute: Active Movement Reflex Response-5 minute: Prompt Response Color-5 minute: Bluish Hands or Feet
[2021-01-16] MEDS: Labetalol 100 MG TAB PO ×2 (09:17→20:01)
[2021-01-16] MEDS: Ibuprofen 600 MG TAB PO (13:29)
[2021-01-16] MEDS: Acetaminophen 325 MG TAB 650 MG PO (13:29)
[2021-01-17 07:43] LABS: HCT 37.9 % (36.0-46.0); HGB 12.4 g/dL (11.2-15.7); MCH 28.4 pg (27.0-33.0); MCHC 32.7 % (32.0-36.0); MCV 86.9 fL (80-95); MPV 9.4 fL (8.0-11.0); Platelet Count 234 10^3/uL (130-400); RBC 4.36 10^6/uL (3.93-5.22); RDW 13.2 % (11.7-14.6); RDW-SD 41.9 fL; WBC 9.85 10^3/uL (4.4-10.8)
--- NOTE | 2021-01-17 07:51 | W.PM.OBPNV1 ---
Date of service: 01/17/21 Time of Service: 07:51 Assessment and Plan Assessment and plan (1) Term delivered: Status: Acute Assessment and plan: A: PPD#1, PE nml Satisfied with experience BP on medication is back to baseline off to a good start P: Pt desires discharge today Will return in 1 week for BP check Will also schedule 2 & 6 wks appt with violin repairer Written instructions reviewed and given to pt (2) Chronic hypertension during : Status: Acute Subjective Subjective Patient comments: Pain well controlled, Tolerating diet and Bowel Movement baby status: Doing well, Nursing well, Rooming in and Strong Bonding Observed feeding status: Exclusively breast feeding Exam Physical Exam Vital signs: Temp Pulse Resp BP Pulse Ox 97.7 F 82 16 136/88 98 01/16/21 20:00 01/16/21 20:00 01/16/21 20:00 01/16/21 20:00 01/16/21 20:00 Vital Signs Reviewed: Yes Constitutional Constitutional: no acute distress HEENT Exam HEENT Exam: Normal Neck Exam Neck Exam: Normal Breast Exam Bilateral: Breast Exam: Normal and Soft Nipple Exam: Normal and Uninjured (pt reports some soreness, no bruising or redness seen) Respiratory Exam Respiratory Exam: Normal Cardiovascular Exam Cardiovascular Exam: Normal Abdominal Exam Abdomen: Other (soft, nontender) Fundal Exam Fundus: Below Umbilicus and Firm Rectal Exam Rectal Exam: Not Done Exam Perineum: Intact Extremities Exam Extremity Exam: Normal Back/Spine/Pelvis Exam Back Exam: Normal Skin Exam Skin Exam: Normal Neurological Exam Neurological Exam: Normal Psychiatric Exam Psychiatric Exam: Normal Results Hemoglobin/Hematocrit: Hgb 12.4 g/dL (11.2-15.7) 01/17/21 06:57 Hct 37.9 % (36.0-46.0) 01/17/21 06:57 Abnormal Lab Findings: Abnormal Labs 01/16/21 02:58 WBC 11.38 H
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
[2021-01-17] MEDS: Labetalol 100 MG TAB PO (08:22)
[2021-01-17] MEDS: Ibuprofen 600 MG TAB PO (08:22)
[2021-01-17 08:38] VITALS: BP 153/86; PULSE 84; RESP 18; TEMP 36.8; O2SAT 98
== END 2021-01-17 10:10 | disposition home or self-care (01) | DRG 806 ==
PROVIDERS: Admitting Provider Advanced Practice Midwife; Visit Provider Advanced Practice Midwife
DX: O24.420 Gestational diabetes mellitus in childbirth, diet controlled (principal); O10.02 Pre-existing essential hypertension complicating childbirth; Z37.0 Single live birth; O99.324 Drug use complicating childbirth; O99.334 Smoking (tobacco) complicating childbirth; F17.210 Nicotine dependence, cigarettes, uncomplicated; O99.62 Diseases of the digestive system complicating childbirth; Z3A.38 38 weeks gestation of pregnancy; K59.00 Constipation, unspecified; R12 Heartburn; G25.81 Restless legs syndrome; F12.90 Cannabis use, unspecified, uncomplicated; O99.344 Other mental disorders complicating childbirth; F43.10 Post-traumatic stress disorder, unspecified
CPT/HCPCS: 36415; 85027; 86850; 86900; 86901; 87635; J3490

== ENCOUNTER 2021-10-30 03:10 | Outpatient (CLI) | payer MEDICAID, SELFPAY ==
[2021-10-30 11:08] LABS: Kit/Specimen SENT
[2021-10-30 11:49] LABS: Abs Immature Grans 0.05 10^3/uL (0.0-0.06); Absolute Basophil Count 0.02 10^3/uL (0.0-0.2); Absolute Eosinophil Count 0.13 10^3/uL (0.0-0.7); Absolute Lymphocyte Count 2.27 10^3/uL (1.2-3.4); Absolute Monocyte Count 0.57 10^3/uL (0.1-0.8); Absolute Neutrophil Count 6.71 10^3/uL (1.2-6.7); Basophils % 0.2; Eosinophils % 1.3; HCT 40.7 % (36.0-46.0); HGB 13.9 g/dL (11.2-15.7); Immature Grans % 0.5; Lymphocytes % 23.3; MCH 29.3 pg (27.0-33.0); MCHC 34.2 % (32.0-36.0); MCV 86 fL (80-95); MPV 9.2 fL (8.0-11.0); Monocytes % 5.8; Neutrophils % 68.9; Platelet Count 268 10^3/uL (130-400); RBC 4.74 10^6/uL (3.93-5.22); RDW 11.8 % (11.7-14.6); RDW-SD 37.2 fL; WBC 9.75 10^3/uL (4.4-10.8)
[2021-10-30 11:59] LABS: *AMPHETAMINES SCREEN URINE Negative (Negative); *BARBITURATES SCREEN URINE Negative (Negative); *BENZODIAZEPINES SCREEN URINE Negative (Negative); Cannabinoids THC Positive (Negative); Cocaine Screen,Urine Negative (Negative); METHADONE URINE SCREEN Negative (Negative); OPIATES URINE SCREEN Negative (Negative)
[2021-10-30 12:00] LABS: Tricyclic Antidepressants Negative (Negative)
[2021-10-30 12:09] LABS: TSH (W/Ref FT4) 1.12 uIU/mL (0.36-3.74)
[2021-10-31 10:05] LABS: Hepatitis B Surface Ag Negative (Negative)
[2021-10-31 10:32] LABS: Hepatitis C Ab w Rflx HCV PCR Negative (Negative)
[2021-10-31 11:33] LABS: Varicella IgG Antibody Positive (See Note)
[2021-10-31 11:37] LABS: Rubella IgG Ab (UVM) Positive (See Note)
[2021-10-31 13:18] LABS: HIV-1/2 Ag & Ab Screen Negative (Negative)
[2021-11-01 08:20] LABS: Chlamydia Result Negative (Negative); GC Result Negative (Negative)
[2021-11-01 18:10] LABS: Syphilis IgG w/Reflex Nonreactive (Nonreactive)
[2021-11-07 09:48] LABS: Buprenorphine Negative ng/mL (Cutoff: 5.0); Norbuprenorphine Negative ng/mL (Cutoff: 2.5)
== END 2021-10-30 03:11 | disposition home or self-care (01) ==
LOC: LBO 03:10
PROVIDERS: Visit Provider Advanced Practice Midwife
DX: O26.891 Other specified pregnancy related conditions, first trimester (principal); N89.8 Other specified noninflammatory disorders of vagina; Z86.32 Personal history of gestational diabetes; Z3A.11 11 weeks gestation of pregnancy
CPT/HCPCS: 36415; 80307; 86787; 86803; 86850; 86900; 86901; 87340; 87389; 87491; 87591; 84443; 85025; 86762; 86780; 87086; 87480; 87510; 87660

== ENCOUNTER 2021-12-11 03:08 | Outpatient (CLI) | payer MEDICAID, SELFPAY ==
[2021-12-11 08:28] LABS: ALT 18 U/L (14-59); AST 14 U/L (15-37); Albumin 3.1 g/dL (3.4-5.0); Alkaline Phosphatase 38 U/L (46-116); Anion Gap 10.8 mmol/L (3-11); BUN 7 mg/dL (7-18); Bilirubin, Total 0.3 mg/dL (0.2-1.0); CO2 21.2 mmol/L (21.0-32.0); CREATININE 0.5 mg/dL (0.55-1.02); Calcium 8.6 mg/dL (8.5-10.1); Chloride 104 mmol/L (98-107); Glucose 90 mg/dL (74-106); LDH 131 U/L (81-234); Potassium 3.6 mmol/L (3.5-5.1); Sodium 136 mmol/L (136-145)
[2021-12-11 09:22] LABS: Glucose 1 Hour 130 mg/dL
[2021-12-11 11:35] LABS: Glucose 3 Hour 54 mg/dL
[2021-12-12 16:20] LABS: GA used in risk estimate Scan estimate; IVF Pregnancy No; Initial or repeat testing Initial testing; Insulin dependent diabetes No; Maternal Weight 218 lbs; Number of Fetuses 1; Prev Pregnancy w/NTD No; RECOMMENDED FOLLOW UP None.; Results Summary Normal risk
== END 2021-12-11 03:09 | disposition home or self-care (01) ==
LOC: LBO 03:08
PROVIDERS: Advanced Practice Midwife; Visit Provider Advanced Practice Midwife
DX: O09.292 Supervision of pregnancy with other poor reproductive or obstetric history, second trimester (principal); Z86.32 Personal history of gestational diabetes; Z3A.17 17 weeks gestation of pregnancy; Z36.89 Encounter for other specified antenatal screening
CPT/HCPCS: 36410; 80053; 82105; 82951; 83615; 84550

== ENCOUNTER 2021-12-13 19:11 | Outpatient (REF) | payer MEDICAID, SELFPAY ==
[2021-12-13 16:09] LABS: Creatinine,Urine 44.43 mg/dL; PROTEIN 6.3 mg/dL (0.0-11.9)
[2021-12-13 16:36] LABS: Creatinine,24hr Ur 1.56 g/24hr (0.60-1.80); TOTAL PROTEIN,URINE TIMED 223.7 mg/24hr (0.0-149.1); Total Volume 3550 ml
== END 2021-12-13 19:12 | disposition home or self-care (01) ==
LOC: LBN 19:11
PROVIDERS: Visit Provider Advanced Practice Midwife
DX: O09.292 Supervision of pregnancy with other poor reproductive or obstetric history, second trimester (principal); Z86.32 Personal history of gestational diabetes; Z3A.17 17 weeks gestation of pregnancy
CPT/HCPCS: 81050; 82570; 84155

== ENCOUNTER → 2022-01-03 02:18 | Outpatient (CLI) | payer MEDICAID, SELFPAY ==
--- NOTE | 2022-01-03 08:00 | DI.US_ITS ---
Exam(s) US OB 2-3 TRIMESTER EXAM: US OB 2-3 TRIMESTER CLINICAL HISTORY: anatomy survey, Z34.92, . TECHNIQUE: Transabdominal obstetrical ultrasound performed. COMPARISON: US US OB NADJA WEIGHT from 12/25/2020 FINDINGS: Transabdominal obstetrical ultrasound performed. FINDINGS: Number of fetuses: One. position: Vertex. heart rate: 167 bpm. Placental location: There is a grade 1 anterior placenta. The placenta covers the internal os consis tent with a previa. Amniotic fluid index: Amount of fluid is within normal limits. ANATOMICAL SURVEY: Within normal limits. BIOMETRIC DATA: BPD: 52 mm = 21 weeks 6 days HC: 188 mm = 21 weeks 0 days AC: 166 mm = 21 weeks 4 days FL: 36 mm = 21 weeks 4 days Cisterna magna: 5.3 mm Cerebellum: 2.3 cm EFW: 432 grms 87% Composite Age: 21 weeks 4 days EDC: 05/12/2022 Heart Rate: 167BPM IMPRESSION: 1. Single live intrauterine gestation as above. 2. Normal anatomic survey. 3. Findings consistent with a placenta previa. DATA REPOSITORY:
== END ==
PROVIDERS: Visit Provider Advanced Practice Midwife
DX: Z34.92 Encounter for supervision of normal pregnancy, unspecified, second trimester (principal); Z3A.21 21 weeks gestation of pregnancy
CPT/HCPCS: 76805

== ENCOUNTER 2022-03-04 02:46 | Outpatient (CLI) | payer MEDICAID, SELFPAY ==
[2022-03-04 09:54] LABS: HCT 34.5 % (36.0-46.0); HGB 11.8 g/dL (11.2-15.7); MCH 30.1 pg (27.0-33.0); MCHC 34.2 % (32.0-36.0); MCV 88 fL (80-95); Platelet Count 198 10^3/uL (130-400); RBC 3.92 10^6/uL (3.93-5.22); RDW 13.2 % (11.7-14.6); RDW-SD 42.5 fL; WBC 9.02 10^3/uL (4.4-10.8)
[2022-03-04 10:40] LABS: ALT 12 U/L (14-59); AST 15 U/L (15-37); Albumin 2.7 g/dL (3.4-5.0); Alkaline Phosphatase 71 U/L (46-116); Anion Gap 9.7 mmol/L (3-11); BUN 5 mg/dL (7-18); Bilirubin, Total 0.2 mg/dL (0.2-1.0); CO2 22.3 mmol/L (21.0-32.0); CREATININE 0.6 mg/dL (0.55-1.02); Calcium 8.9 mg/dL (8.5-10.1); Chloride 106 mmol/L (98-107); Estimated GFR 119.97 (mL/min/1.73m2); Glucose 87 mg/dL (74-106); LDH 131 U/L (81-234); Potassium 3.8 mmol/L (3.5-5.1); Sodium 138 mmol/L (136-145); Total Protein 6.9 g/dL (6.4-8.2)
== END 2022-03-04 02:47 | disposition home or self-care (01) ==
LOC: LBO 02:46
PROVIDERS: Visit Provider Advanced Practice Midwife
DX: O10.913 Unspecified pre-existing hypertension complicating pregnancy, third trimester
CPT/HCPCS: 36415; 80053; 85027; 83615; 84550

== ENCOUNTER 2022-04-15 21:00 | Outpatient (REF) | payer MEDICAID, SELFPAY | END 2022-04-15 21:01 | disposition home or self-care (01) | LOC: LBN 21:00 | PROVIDERS: Visit Provider Obstetrics & Gynecology | DX: Z34.93 Encounter for supervision of normal pregnancy, unspecified, third trimester (principal) | CPT/HCPCS: 87081 ==

== ENCOUNTER 2022-04-18 06:42 | Outpatient (CLI) | payer MEDICAID, SELFPAY ==
[2022-04-18 16:22] VITALS: BP 141/73; PULSE 87; TEMP 36.7
--- NOTE | 2022-04-21 17:25 | PDOC.NST_ITS ---
Date of service: 04/21/22 Time of Service: 17:25 NST Evaluation Reason for NST Reasons for Nonstress Test: CHRONIC HYPERTENSION Gestational Age Gestational Age in Weeks and Days: 35 Weeks and 5Days Test and Monitor Explained Test/Monitor Explained: Test Explained and Monitor Explained Vital Signs Blood Pressure: 141/73 Pulse: 87 Temperature: 98.1 F Urine Results Urine Protein: Negative Urine Ketones: Negative Urine Glucose: Negative Urine Blood: Negative NST Information Date on Monitor: 04/18/22 Time on Monitor: 16:23 Date off Monitor: 04/18/22 Time off Monitor: 16:53 Total Time on Monitor: 30 NST Interventions: None NST Evaluation Patient States Movement: Present FHR Baseline: 140 Variability: Moderate 6-25 bpm Accelerations: 15x15 Decelerations: None NST Results: Reactive Note NST Note Note: Pt is planning repeat PCS at [facility] for complete previa. No bleeding. NST Reviewed and Verified by: Claudia Plummer
[2022-04-21 17:27] VITALS: BP 141/73; PULSE 87; TEMP 36.7
== END 2022-04-18 16:58 | disposition home or self-care (01) ==
LOC: BCD 06:46 → OBS 16:16
PROVIDERS: Visit Provider Obstetrics & Gynecology Gynecology
DX: O10.013 Pre-existing essential hypertension complicating pregnancy, third trimester (principal); Z3A.35 35 weeks gestation of pregnancy
CPT/HCPCS: 59025

== ENCOUNTER 2022-04-22 06:54 | Outpatient (CLI) | payer MEDICAID, SELFPAY ==
[2022-04-22 08:43] VITALS: BP 143/83; PULSE 98; TEMP 36.8
--- NOTE | 2022-05-01 12:58 | W.OBNST ---
Date of service: 05/01/22 Time of Service: 12:00 NST Evaluation Reason for NST Reasons for Nonstress Test: OTHER, SEE COMMENT Reason for NST Other: Hypertension Gestational Age Gestational Age in Weeks and Days: 36 Weeks and 2Days Test and Monitor Explained Test/Monitor Explained: Test Explained, Monitor Explained and Patient Verbalized Understanding Vital Signs Blood Pressure: 143/83 Pulse: 98 Temperature: 98.2 F NST Information Date on Monitor: 04/22/22 Time on Monitor: 08:45 Date off Monitor: 04/22/22 Time off Monitor: 09:23 Total Time on Monitor: 38 NST Interventions: PO Hydration Contraction Frequency: 2 NST Evaluation Patient States Movement: Present FHR Baseline: 140 Variability: Moderate 6-25 bpm Accelerations: 15x15 Decelerations: None NST Results: Reactive Note NST Note NST Reviewed and Verified by: Stacey Connor
[2022-05-01 12:59] VITALS: BP 143/83; PULSE 98; TEMP 36.8
== END 2022-04-22 09:32 | disposition home or self-care (01) ==
LOC: BCD 06:56 → OBS 08:51
PROVIDERS: Visit Provider Obstetrics & Gynecology
DX: O99.893 Other specified diseases and conditions complicating puerperium (principal); I10 Essential (primary) hypertension; Z3A.36 36 weeks gestation of pregnancy
CPT/HCPCS: 59025

== ENCOUNTER → 2022-04-24 02:13 | Outpatient (CLI) | payer MEDICAID, SELFPAY ==
--- NOTE | 2022-04-24 06:45 | DI.US_ITS ---
Exam(s) US OB F/U FACIAL/LVOT/RVOT EXAM: US OB F/U FACIAL/LVOT/RVOT CLINICAL HISTORY: placenta localization,Q44.03. COMPARISON: US US OB 2-3 TRIMESTER from 01/03/2022 TECHNIQUE: Transabdominal obstetrical ultrasound performed. FINDINGS: Sonographic images demonstrate a single intrauterine gestation in cephalic position. heart rate motion visualized Placenta: Complete placenta previa, not visibly changed from the prior exam. Cervical length: Cervix not well seen due to lack of urinary bladder distention. IMPRESSION: Complete placenta previa. DATA REPOSITORY:
== END ==
PROVIDERS: Visit Provider Obstetrics & Gynecology
DX: O44.03 Complete placenta previa NOS or without hemorrhage, third trimester (principal)
CPT/HCPCS: 76815

== ENCOUNTER 2022-04-29 15:00 | Observation (INO) | payer MEDICAID, SELFPAY ==
[2022-04-29 15:00] VITALS: BP 171/101; PULSE 79; RESP 20
[2022-04-29] MEDS: Labetalol 100 MG TAB 200 MG PO (15:23)
[2022-04-29 16:06] VITALS: BP 173/97; PULSE 73; RESP 18; TEMP 37.1
[2022-04-29 16:25] VITALS: BP 172/101; PULSE 80; RESP 20
[2022-04-29] MEDS: NIFEdipine-CR 30 MG TABCR PO (16:34)
[2022-04-29] MEDS: Acetaminophen 500 MG TAB PO (16:34)
[2022-04-29 16:39] LABS: Abs Immature Grans 0.09 10^3/uL (0.0-0.06); Absolute Basophil Count 0.02 10^3/uL (0.0-0.2); Absolute Eosinophil Count 0.41 10^3/uL (0.0-0.7); Absolute Lymphocyte Count 2.28 10^3/uL (1.2-3.4); Absolute Monocyte Count 0.69 10^3/uL (0.1-0.8); Absolute Neutrophil Count 6.05 10^3/uL (1.2-6.7); Basophils % 0.2; Eosinophils % 4.3; HCT 30.3 % (36.0-46.0); HGB 10.3 g/dL (11.2-15.7); Immature Grans % 0.9; Lymphocytes % 23.9; MCH 30.3 pg (27.0-33.0); MCV 89 fL (80-95); Monocytes % 7.2; Neutrophils % 63.5; Platelet Count 201 10^3/uL (130-400); RDW 13.4 % (11.7-14.6); WBC 9.54 10^3/uL (4.4-10.8)
[2022-04-29 16:58] LABS: ALT 14 U/L (14-59); AST 14 U/L (15-37); Albumin 2.4 g/dL (3.4-5.0); Alkaline Phosphatase 70 U/L (46-116); Anion Gap 9.5 mmol/L (3-11); BUN 16 mg/dL (7-18); Bilirubin, Total 0.2 mg/dL (0.2-1.0); CO2 24.5 mmol/L (21.0-32.0); CREATININE 0.7 mg/dL (0.55-1.02); Calcium 8.6 mg/dL (8.5-10.1); Chloride 107 mmol/L (98-107); Estimated GFR 115.59 (mL/min/1.73m2); Glucose 83 mg/dL (74-106); Potassium 3.7 mmol/L (3.5-5.1); Sodium 141 mmol/L (136-145); Total Protein 6.3 g/dL (6.4-8.2)
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
== END 2022-04-29 16:42 | disposition home or self-care (01) ==
PROVIDERS: Admitting Provider Obstetrics & Gynecology; Visit Provider Obstetrics & Gynecology
DX: O11.5 Pre-existing hypertension with pre-eclampsia, complicating the puerperium (principal); Z98.891 History of uterine scar from previous surgery
CPT/HCPCS: 80053; 85025; G0378

== ENCOUNTER 2022-11-12 20:18 | Emergency (ER) | payer MEDICAID, SELFPAY ==
[2022-11-12 20:24] VITALS: BP 142/85; PULSE 70; RESP 18; TEMP 36.8; O2SAT 98
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
[2022-11-12] MEDS: Polymyxin B/Trimethoprim Ophth Soln 10 ML BTL OU (21:57)
== END 2022-11-12 21:57 | disposition home or self-care (01) ==
PROVIDERS: Emergency Provider Registered Nurse Emergency
DX: H10.33 Unspecified acute conjunctivitis, bilateral (principal)
CPT/HCPCS: 99283; 99284

== ENCOUNTER 2024-07-22 02:36 | Outpatient (CLI) | payer MEDICAID, SELFPAY ==
--- NOTE | 2024-07-22 07:00 | DI.CT_ITS ---
Exam(s) CT ABDOMEN PELVIS W EXAM: CT ABDOMEN PELVIS W CLINICAL HISTORY: protruding mass not seen on exam,hernia,k46.9. TECHNIQUE: Imaging Protocol: Axial computed tomography images with coronal and sagittal reformatted images were created and reviewed CONTRAST MATERIAL: Intravenous: Omnipaque-350 75cc Oral: Yes. Oral contrast was also administered for bowel opacification. COMPARISON: No exams were available for comparison FINDINGS: VISUALIZED LUNG BASES: No nodules nor pleural effusions evident. ABDOMEN: There is no ascites. LIVER: There are no focal hepatic lesions evident. No dilated intrahepatic ducts. GALLBLADDER/BILIARY: No obvious gallbladder pathology. CBD is not dilated. PANCREAS: No evidence of pancreatic mass nor dilatation of the pancreatic duct. SPLEEN: Spleen is not enlarged. No obvious intrasplenic lesions. Splenic and portal veins are paten t. ADRENALS: There are no significant adrenal masses. KIDNEYS:Right kidney unremarkable. There is a solitary nonobstructive calculus in lower pole calyx o f the opposite-left kidney which measures 5 mm. There are no calculi in the nondilated ureters. The re are no radiopaque calculi seen in the partially collapsed urinary bladder. No solid renal masses evident.. ABDOMINAL AORTA: Abdominal aorta is not enlarged. LYMPH NODES:There is no retroperitoneal nor paraaortic adenopathy. ABDOMINAL WALL: There is a fat containing anterior abdominal wall umbilical hernia. No bowel loops t herein. No inguinal hernias. GI: There is no evidence of bowel obstruction; the administered oral contrast has progressed to the l evel of the rectum by the time of image acquisition. PELVIS: GI: No evidence of appendicitis.No evidence of sigmoid diverticulitis. LYMPH NODES: There is no intrapelvic nor inguinal adenopathy. REPRODUCTIVE: Uterus is anteverted and contains an IUD in the endometrial canal no abnormal adnexal m asses. No free fluid in the pelvis. URINARY BLADDER: No calculi nor obvious masses evident OSSEOUS: No fractures and no significant osseous lesions. No disc space narrowing. No facet arthropathy. Sacroiliac joints appear unremarkable. IMPRESSION: 1. There is a solitary nonobstructive 5 millimeter calculus in the lower pole calyx of the left kidne y. No hydronephrosis nor hydroureter and no calculi seen in the urinary bladder. No other significa nt focal renal findings. 2. There is an IUD noted in the uterine endometrial canal. It appears to be in satisfactory position . No abnormal adnexal masses evident. No free fluid. 3. No evidence of anterior abdominal wall hernias. No obvious inguinal hernias evident. RADIATION DOSE DELIVERED: 704.21mGy.cm Total DLP DATA REPOSITORY: All CT scans at this facility are submitted to the National Radiology Data Registry (NRDR) Dose Index Registry (DIR) with the [employer] ([employer]). RADIATION OPTIMIZATION: All CT scans at this facility use at least one of these dose optimization te chniques: automated exposure control; mA and/or kV adjustment per patient size (includes targeted exa ms where dose is matched to clinical indication); or iterative reconstruction.
[2024-07-22 08:50] LABS: CREATININE 0.8 mg/dL (0.55-1.02); Estimated GFR 97.26 (mL/min/1.73m2)
[2024-07-22] MEDS: Normal Saline - Diluent 50 ML VIAL IJ (10:00)
[2024-07-22] MEDS: Omnipaque 350 MG/ML 500 ML BTL-Imaging package IJ (10:00)
== END 2024-07-22 02:56 ==
LOC: DI 02:37
PROVIDERS: PCP Nurse Practitioner Family; Visit Provider Surgery
DX: K46.9 Unspecified abdominal hernia without obstruction or gangrene (principal); N20.0 Calculus of kidney
CPT/HCPCS: 74177; 82565